=== PATIENT | female | born 1940 | race Caucasian/White ===

== ENCOUNTER 2016-08-02 07:55 | Day surgery (SDC) | payer MEDICARE, BC ==
--- NOTE | ~2016-08-02 | EGD ---
EGD REPORT [facility] [address] [place] [address] NAME: DAMARIS DAWSON : [birth year] STATUS : REG [facility]#: [id number] AGE: 76 ADM/REG DATE : 08/02/16 MR#: [id number] REPORT SERV DATE: 08/02/16 DICTATED BY: ELISA LAWRENCE DATE: 08/02/16 REPORT STATUS : Draft TRANSCRIBED BY: [facility] DATE: 08/02/16 Endoscopy Center Patient Name: Damaris Dawson Date of : 1940 Attending MD: ELISA LAWRENCE MD Procedure Date No Time: 08/02/2016 Procedure: Upper GI endoscopy Indications: Heartburn, Suspected esophageal reflux Referring MD: FRANCINE NICHOLE Medicines: as per anesthesia Complications: No immediate complications. Procedure: Pre-Anesthesia Assessment: - ASA Grade Assessment: III - A patient with severe systemic disease. After obtaining informed consent, the endoscope was passed under direct vision. Throughout the procedure, the patient's blood pressure, pulse, and oxygen saturations were monitored continuously. The GIF H190 [id number] was introduced through the mouth, and advanced to the third part of duodenum. The upper GI endoscopy was accomplished without difficulty. The patient tolerated the procedure well. Findings: There were esophageal mucosal changes suspicious for short-segment Caldwell's esophagus present in the lower third of the esophagus. The maximum longitudinal extent of these mucosal changes was 2 cm in length. Mucosa was biopsied with a cold forceps for histology randomly at intervals of 1 cm in the lower third of the esophagus. One specimen bottle was sent to pathology. A small hiatus hernia was present. The examined duodenum was normal. Impression: - Esophageal mucosal changes suspicious for short-segment Caldwell's esophagus. Biopsied. - Hiatus hernia. - Normal examined duodenum. Recommendation: - Await pathology results. - Follow an antireflux regimen. - Continue present medications. Procedure Code(s): --- Professional --- 64980, Esophagogastroduodenoscopy, flexible, transoral; with biopsy, single or multiple EGD REPORT [facility] [address] [place], [place] [address]. [address] NAME: DAMARIS DAWSON : [birth year] STATUS : REG [facility] [place] PAT#: [id number] AGE: 76 ADM/REG DATE : 08/02/16 MR#: [id number] REPORT SERV DATE: 08/02/16 DICTATED BY: ELISA LAWRENCE. DATE: 08/02/16 REPORT STATUS : Draft TRANSCRIBED BY: [email or web address] DATE: 08/02/16 Diagnosis Code(s): --- Professional --- K22.9, Disease of esophagus, unspecified K44.9, Diaphragmatic hernia without obstruction or gangrene R12, Heartburn CPT copyright 2013 [employer]. All rights reserved. The codes documented in this report are preliminary and upon performance analyst review may be revised to meet current compliance requirements. ELISA LAWRENCE MD 08/02/2016 9:42 AM This report has been signed electronically. Number of Addenda: 0 Note Initiated On: 08/02/2016 9:21 AM Scope Withdrawal Time 0 hours 0 minutes 0 seconds [address] [facility] [place] [address]
--- NOTE | ~2016-08-02 | EGD ---
EGD REPORT [facility] [address] [place] [address] NAME: DAMARIS DAWSON : [birth year] STATUS : REG [facility]#: [id number] AGE: 76 ADM/REG DATE : 08/02/16 MR#: [id number] REPORT SERV DATE: 08/02/16 DICTATED BY: ELISA LAWRENCE DATE: 08/02/16 REPORT STATUS : Draft TRANSCRIBED BY: [employer] DATE: 08/02/16 Endoscopy Center Patient Name: Damaris Dawson Date of : 1940 Attending MD: ELISA LAWRENCE MD Procedure Date No Time: 08/02/2016 Procedure: Colonoscopy Indications: Screening for colorectal malignant neoplasm Referring MD: Jun Roy Medicines: as per anesthesia Complications: No immediate complications. Procedure: Pre-Anesthesia Assessment: - ASA Grade Assessment: III - A patient with severe systemic disease. After I obtained informed consent, the scope was passed under direct vision. Throughout the procedure, the patient's blood pressure, pulse, and oxygen saturations were monitored continuously. The PCF H190L [id number] was introduced through the anus and advanced to the cecum, identified by appendiceal orifice and ileocecal valve. The colonoscopy was performed without difficulty. The patient tolerated the procedure. The quality of the bowel preparation was adequate to identify polyps. Findings: The perianal and digital rectal examinations were normal. A few small and large-mouthed diverticula were found in the sigmoid colon and in the descending colon. Internal hemorrhoids were found during endoscopy and were mild. Impression: - Diverticulosis in the sigmoid colon and in the descending colon. - Internal hemorrhoids. Recommendation: - Continue present medications. Procedure Code(s): --- Professional --- 98080, Colonoscopy, flexible, proximal to splenic flexure; diagnostic, with or without collection of specimen(s) by brushing or washing, with or without colon decompression (separate procedure) Diagnosis Code(s): --- Professional --- K64.8, Other hemorrhoids K57.30, Diverticulosis of large intestine without EGD REPORT [facility] [address] [facility] [address] NAME: DAMARIS DAWSON : [birth year] STATUS : REG [facility] [place] PAT#: [id number] AGE: 76 ADM/REG DATE : 08/02/16 MR#: [id number] REPORT SERV DATE: 08/02/16 DICTATED BY: ELISA LAWRENCE. DATE: 08/02/16 REPORT STATUS : Draft TRANSCRIBED BY: [employer] DATE: 08/02/16 perforation or abscess without bleeding Z12.11, Encounter for screening for malignant neoplasm of colon CPT copyright 2013 [employer]. All rights reserved. The codes documented in this report are preliminary and upon town planner review may be revised to meet current compliance requirements. ELISA LAWRENCE MD 08/02/2016 10:09 AM This report has been signed electronically. Number of Addenda: 0 Note Initiated On: 08/02/2016 9:40 AM Scope Withdrawal Time 0 hours 5 minutes 43 seconds [address] [place] [address]
--- NOTE | ~2016-08-02 | EGD ---
EGD REPORT [facility] [address] [place] [address] NAME: DAMARIS DAWSON : [birth year] STATUS : REG [facility]#: [id number] AGE: 76 ADM/REG DATE : 08/02/16 MR#: [id number] REPORT SERV DATE: 08/02/16 DICTATED BY: ELISA LAWRENCE DATE: 08/02/16 REPORT STATUS : Draft TRANSCRIBED BY: [facility] DATE: 08/02/16 Endoscopy Center Patient Name: Damaris Dawson Date of : 1940 Attending MD: ELISA LAWRENCE MD Procedure Date No Time: 08/02/2016 Procedure: Upper GI endoscopy Indications: Heartburn, Suspected esophageal reflux Referring MD: Jun GALLEGO Medicines: as per anesthesia Complications: No immediate complications. Procedure: Pre-Anesthesia Assessment: - ASA Grade Assessment: III - A patient with severe systemic disease. After obtaining informed consent, the endoscope was passed under direct vision. Throughout the procedure, the patient's blood pressure, pulse, and oxygen saturations were monitored continuously. The GIF H190 [id number] was introduced through the mouth, and advanced to the third part of duodenum. The upper GI endoscopy was accomplished without difficulty. The patient tolerated the procedure well. Findings: There were esophageal mucosal changes suspicious for short-segment Caldwell's esophagus present in the lower third of the esophagus. The maximum longitudinal extent of these mucosal changes was 2 cm in length. Mucosa was biopsied with a cold forceps for histology randomly at intervals of 1 cm in the lower third of the esophagus. One specimen bottle was sent to pathology. A small hiatus hernia was present. The examined duodenum was normal. Impression: - Esophageal mucosal changes suspicious for short-segment Caldwell's esophagus. Biopsied. - Hiatus hernia. - Normal examined duodenum. Recommendation: - Await pathology results. - Follow an antireflux regimen. - Continue present medications. Procedure Code(s): --- Professional --- 21186, Esophagogastroduodenoscopy, flexible, transoral; with biopsy, single or multiple EGD REPORT [address] [place]. [address] NAME: DAMARIS DAWSON : [birth year] STATUS : REG [facility] [place] PAT#: [id number] AGE: 76 ADM/REG DATE : 08/02/16 MR#: [id number] REPORT SERV DATE: 08/02/16 DICTATED BY: ELISA LAWRENCE. DATE: 08/02/16 REPORT STATUS : Draft TRANSCRIBED BY: [employer] DATE: 08/02/16 Diagnosis Code(s): --- Professional --- K22.9, Disease of esophagus, unspecified K44.9, Diaphragmatic hernia without obstruction or gangrene R12, Heartburn CPT copyright 2013 [employer]. All rights reserved. The codes documented in this report are preliminary and upon medical equipment sales review may be revised to meet current compliance requirements. ELISA LAWRENCE MD 08/02/2016 9:42 AM This report has been signed electronically. Number of Addenda: 0 Note Initiated On: 08/02/2016 9:21 AM Scope Withdrawal Time 0 hours 0 minutes 0 seconds [address] [facility] [place] [id number]
[~2016-08-02 07:55] MED LIST: ACET500CAP PO; ADVIL PO; ALEVE220 MG PO; COZ25 PO; CRESTOR5 MG PO; IBU-200200 MG PO; PRAV10 PO; PRILO PO; PROTONIX PO; SINGULAIR1 PO; VITAMIN D1000 UNI1 PO; ZYRTEC ALLGY10 MG PO
== END 2016-08-02 23:59 | disposition home or self-care (01) ==
LOC: DMU 07:55
PROVIDERS: Internal Medicine Gastroenterology
PROC: 0DB38ZX Excision of Lower Esophagus, Via Natural or Artificial Opening Endoscopic, Diagnostic (ICD-10-PCS; principal; 2016-08-02 09:30)
PROC: 0DJD8ZZ Inspection of Lower Intestinal Tract, Via Natural or Artificial Opening Endoscopic (ICD-10-PCS; 2016-08-02 09:30)
DX: Z12.11 Encounter for screening for malignant neoplasm of colon (principal); K22.9 Disease of esophagus, unspecified; K44.9 Diaphragmatic hernia without obstruction or gangrene; R12 Heartburn; I10 Essential (primary) hypertension; K64.8 Other hemorrhoids; K57.30 Diverticulosis of large intestine without perforation or abscess without bleeding; K21.9 Gastro-esophageal reflux disease without esophagitis; Z90.11 Acquired absence of right breast and nipple; Z98.890 Other specified postprocedural states; Z79.899 Other long term (current) drug therapy
CPT/HCPCS: 88305; J2405